=== PATIENT | female | born 1945 | race American Indian/Alaskan Native ===

== ENCOUNTER 2019-06-05 01:06 | Inpatient (IN) | payer MEDICARE ==
--- NOTE | 2019-06-05 03:14 | XRay Report ---
RIGHT HIP 2 VIEWS INDICATION / CLINICAL INFORMATION: Fall 3 weeks ago with increasing right hip pain. COMPARISON: None available. FINDINGS: BONES / JOINT(S): There is an acute fracture of the subcapital femoral neck on the right. There is mi ld superior and lateral displacement of the distal fracture fragment with overriding present. No disl ocation is seen. There is lower lumbar spondylosis. SOFT TISSUES: No significant abnormality. ADDITIONAL FINDINGS: None. IMPRESSION: Acute, mildly displaced fracture of the subcapital right femoral neck. Signer Name: Trace Quintanilla MD Signed: 06/05/2019 3:10 AM Workstation Name: [id number]
[2019-06-05 04:37] LABS: Basophils % (Auto) 0.4 % (0.0-1.8); Eosinophils # (Auto) 0.1 K/mm3 (0.0-0.4); Eosinophils % (Auto) 1.1 % (0.0-4.3); Hematocrit 36.6 % (30.3-42.9); Hemoglobin 12.2 gm/dl (10.1-14.3); Lymphocytes # (Auto) 2.2 K/mm3 (1.2-5.4); Lymphocytes % (Auto) 22.3 % (13.4-35.0); Mean Corpuscular HGB Conc 33 % (30-34); Mean Corpuscular Volume 82 fl (79-97); Monocytes # (Auto) 0.5 K/mm3 (0.0-0.8); Monocytes % (Auto) 5.1 % (0.0-7.3); Platelet Count 313 K/mm3 (140-440); Red Blood Count 4.45 M/mm3 (3.65-5.03); Red Cell Distribution Width 13.4 % (13.2-15.2)
[2019-06-05 04:44] LABS: INR 1.04 (0.87-1.13)
[2019-06-05] MEDS ORDERED: ONDANSETRON 4 MG/2 ML INJ IV ONE (04:44)
[2019-06-05] MEDS ORDERED: MORPHINE 4 MG/1 ML INJ IV ONE (04:44)
[2019-06-05 04:45] LABS: Partial Thromboplastin Time 25.2 Sec. (24.2-36.6)
[2019-06-05 04:54] LABS: BUN/Creatinine Ratio 24; Blood Urea Nitrogen 19 mg/dL (7-17); Calcium 9.9 mg/dL (8.4-10.2); Hemolysis Index 0
[2019-06-05] MEDS ORDERED: MORPHINE 2 MG/1 ML INJ IV ONE (08:06)
[2019-06-05] MEDS ORDERED: SODIUM CHLORIDE 0.9% 1000 ML 1,000 ML IV ONE (08:06)
--- NOTE | 2019-06-05 08:54 | Emergency Department Report ---
ED Fall HPI - General Chief Complaint: Fall Stated Complaint: FALL/SEVERE GROIN PAIN Time Seen by Provider: 06/05/19 06:29 Source: patient Mode of arrival: Ambulatory - History of Present Illness Initial Comments: Reports ground level fall on [place] [place]. Reports tripped and fell on her right hip. Reports head trauma but denies LOC. Reports has ambulated with pain at the right hip since the fall and that the pain became worst today. Denies drugs/alcohol. Complaint: fall - Related Data Allergies Allergy/AdvReac Type Severity Reaction Status Date / Time lisinopril Allergy Swelling Verified 06/05/19 02:19 Penicillins Allergy Hives Verified 06/05/19 02:19 ED Review of Systems ROS: Stated complaint: FALL/SEVERE GROIN PAIN Other details as noted in HPI Other: GENERAL: No weight change, fatigue, fever, chills, or night sweats SKIN: No changes in skin or hair, no itching, no rashes, no jaundice HEAD: No trauma EYES: No blurriness, tearing, itching, acute visual loss, conjunctival discoloration, or scleral icterus EARS: No hearing loss, tinnitus, vertigo, or earache NOSE: No rhinorrhea, stuffiness, sneezing, itching, or epistaxis MOUTH: No bleeding gums, hoarseness, sore throat, or swelling CARDIAC: No new murmur, chest pain, palpitations, dyspnea on exertion, orthopnea, PND, or edema RESPIRATORY: No shortness of breath, wheeze, cough, sputum production, hemoptysis GI: No abdominal pain, nausea, vomiting, dysphagia, diarrhea, constipation, hematemesis, melena, hematochezia URINARY: No frequency, urgency, polyuria, dysuria, hematuria, or incontinence MUSCULOSKELETAL: Right hip pain NEUROLOGIC: No headache, syncope, loss of sensation, numbness, tingling, tremors, weakness, paralysis, seizures HEMATOLOGIC: No anemia, easy bruising, bleeding, petechiae, or purpura ENDOCRINE: No hot or cold intolerance, sweating, polyuria, polydipsia or, polyphagia no thyroid problems PSYCHIATRIC: No change in mood, no anxiety, no depression ED Past Medical Hx - Past Medical History Previous Medical History?: Yes Hx Hypertension: Yes Additional medical history: Osteoporosis, Carpal Tunnel Right hand, - Surgical History Past Surgical History?: Yes Additional Surgical History: Tubal Ligation - Social History Smoking Status: Never Smoker Substance Use Type: None ED Physical Exam - General Limitations: No Limitations - Other Other exam information: GENERAL: Patient in no acute distress HEAD: Normocephalic, atraumatic EYES: PERRLA, EOM intact, no scleral icterus, no conjunctival hemorrhage, visual [place] and acuity wnl NOSE: No tenderness, discharge, sinus tenderness MOUTH: No erythema, bleeding, exudate HEART: Regular rate and rhythm, no murmur, S1-S2 are auscultated, no edema, pulses are symmetric LUNGS: No respiratory distress. Bilateral breath sounds, No tachypnea, No retractions, No wheezing, rales, rhonchi ABDOMEN: Normal bowel sounds, abdomen soft, no tenderness, no rebound, no guarding, no distention, no masses, no CVA tenderness MUSCULOSKELETAL: Decreased ROM of right hip due to pain. Tenderness at the right hip. No obvious deformity. NEUROLOGIC: GCS 15, Alert and Oriented x3, Cranial nerves intact, normal sensation, normal strength, no cerebellar deficit, NIHSS 0 SKIN: Skin is warm and dry, no wounds, no rashes ED Course Vital Signs 06/05/19 06/05/19 06/05/19 01:11 04:14 04:31 Temperature 97.7 F 97.9 F Pulse Rate 90 96 H 81 Respiratory 16 14 17 Rate Blood Pressure 152/67 146/64 Blood Pressure 146/64 [Left] O2 Sat by Pulse 94 96 96 Oximetry 06/05/19 06/05/19 06/05/19 05:00 05:31 06:00 Temperature Pulse Rate 74 68 75 Respiratory 13 14 13 Rate Blood Pressure 138/71 138/71 146/75 Blood Pressure [Left] O2 Sat by Pulse 98 97 92 Oximetry 06/05/19 06/05/19 06/05/19 06:31 07:22 07:31 Temperature 98.5 F Pulse Rate 99 H 106 H 82 Respiratory 21 22 13 Rate Blood Pressure 146/75 140/70 Blood Pressure 140/70 [Left] O2 Sat by Pulse 98 99 94 Oximetry 06/05/19 08:00 Temperature Pulse Rate 79 Respiratory 14 Rate Blood Pressure 136/71 Blood Pressure [Left] O2 Sat by Pulse 91 Oximetry ED Medical Decision Making - Lab Data Result diagrams: 06/05/19 04:14 06/05/19 04:14 Laboratory Results - last 24 hr 06/05/19 06/05/19 06/05/19 04:14 04:14 04:14 WBC 9.9 RBC 4.45 Hgb 12.2 Hct 36.6 MCV 82 MCH 27 L MCHC 33 RDW 13.4 Plt Count 313 Lymph % (Auto) 22.3 [place] % (Auto) 5.1 Eos % (Auto) 1.1 Baso % (Auto) 0.4 Lymph # 2.2 [place] # 0.5 Eos # 0.1 Baso # 0.0 Seg Neutrophils % 71.1 H Seg Neutrophils # 7.0 PT 13.7 INR 1.04 APTT 25.2 Sodium 142 Potassium 3.9 Chloride 101.0 Carbon Dioxide 28 Anion Gap 17 BUN 19 H Creatinine 0.8 Estimated GFR > 60 BUN/Creatinine Ratio 24 Glucose 132 H Calcium 9.9 - Radiology Data Radiology results: report reviewed - Medical Decision Making At Dr. Neville call back updated with results. Request admit to hospitalist. Will see patient on consult . Possibly OR tomorrow. Patient comfortable. Updated with results. Plan admit for further evaluation. Hospitalist updated and accepts admission. Critical care attestation.: If time is entered above; I have spent that time in minutes in the direct care of this critically ill patient, excluding procedure time. ED Disposition Clinical Impression: Fall Qualifiers: Encounter type: initial encounter Qualified Code(s): W19.XXXA - Unspecified fall, initial encounter Hip fracture, right Qualifiers: Encounter type: initial encounter Fracture type: closed Qualified Code(s): S72.001A - Fracture of unspecified part of neck of right femur, initial encounter for closed fracture Disposition: OP ADMIT IP TO THIS HOSP Is pt being admited?: Yes Condition: Stable Referrals: PRIMARY CARE, [Primary Care Provider] - 3-5 Days
[2019-06-05] MEDS ORDERED: oxyCODONE /ACETAMINOPHEN 5-325MG TAB PO PRN (10:32)
[2019-06-05] MEDS ORDERED: ACETAMINOPHEN 325 MG TAB PO PRN (10:32)
--- NOTE | 2019-06-05 10:34 | History and Physical Report ---
History of Present Illness Chief complaint: I fell and hurt my hip History of present illness: 73-year-old female with hypertension, osteoporosis presents to ED for evaluation. Patient states that she fell while walking in her home about 2 weeks ago and landed on her right side. Patient states that she had experienced pain in her right hip since her fall. Patient states that pain is 4/10, constant, worse with ambulation, worsened with weightbearing, and results in difficulty with ambulation. Patient transported to [facility] for further care and evaluation. Patient seen and evaluated in the emergency department. Lab and imaging studies reviewed. Patient found to have right hip fracture. Orthopedic surgery service consulted in ED. Patient admitted to surgical floor for surgical intervention. Patient denies fever, chills, chest pain, palpitations, shortness of breath, unilateral leg swelling, calf Pain, hemoptysis, productive cough, recent ill contacts. Prior admission on 07/02/2012 reviewed. No medicat ion listed at time of admission for reconciliation. Past History Past Medical History: other (See HPI) Past Surgical History: Other (Tubal ligation) Social history: , lives with family Family history: hypertension Medications and Allergies Allergies Allergy/AdvReac Type Severity Reaction Status Date / Time lisinopril Allergy Swelling Verified 06/05/19 02:19 Penicillins Allergy Hives Verified 06/05/19 02:19 Active Meds: Active Medications Sodium Chloride (Nacl 0.9% 1000 Ml) 1,000 mls @ 75 mls/hr IV DIRECT ONE Stop: 06/05/19 21:25 Last Admin: 06/05/19 08:22 Dose: 75 mls/hr Documented by: Review of Systems Constitutional: no weight loss, no weight gain, no fever, no chills Ears, nose, mouth and throat: no ear pain, no ear discharge, no decreased hearing, no nose pain Breasts: no change in shape Cardiovascular: no palpitations, no rapid/irregular heart beat, no edema, no lightheadedness Respiratory: no cough, no excessive sputum, no hemoptysis, no shortness of breath Gastrointestinal: no nausea, no diarrhea, no change in bowel habits, no hematemesis Genitourinary Female: no dysmenorrhea, no flank pain, no urgency, no post void dribbling, no urge incontinence Rectal: no pain, no incontinence, no bleeding Musculoskeletal: other (Right hip pain), no neck stiffness, no shooting arm pain, no arm numbness/tingling, no low back pain Integumentary: no rash, no pruritis, no wounds, no jaundice Neurological: no head injury, no transient paralysis, no parathesias, no tingling, no seizures Psychiatric: no anxiety, no change in sleep habits, no insomnia, no hypersomnia, no change in appetite, no change in libido Endocrine: no cold intolerance, no heat intolerance, no excessive thirst, no polydipsia, no excessive sweating, no flushing Hematologic/Lymphatic: no easy bruising, no lymphadenopathy, no lymphedema Allergic/Immunologic: no urticaria, no allergic rhinitis, no wheezing, no a ngioedema Exam - Constitutional Vitals: Temp Pulse Resp BP Pulse Ox 98.5 F 79 14 136/71 91 06/05/19 07:22 06/05/19 08:00 06/05/19 08:00 06/05/19 08:00 06/05/19 08:00 General appearance: Present: mild distress - EENT Eyes: Present: PERRL ENT: hearing intact, clear oral mucosa - Neck Neck: Present: supple, normal ROM - Respiratory Respiratory effort: normal Respiratory: bilateral: CTA - Cardiovascular Heart Sounds: Present: S1 & S2. Absent: rub, click - Extremities Extremities: pulses symmetrical, No edema Extremity abnormal: tenderness, other (Right hip pain and tenderness.) Peripheral Pulses: within normal limits - Abdominal General gastrointestinal: Present: soft, non-tender, non-distended, normal bowel sounds Female genitourinary: Present: normal - Integumentary Integumentary: Present: clear, warm, dry - Musculoskeletal Musculoskeletal: gait normal, strength equal bilaterally - Psychiatric Psychiatric: appropriate mood/affect, intact judgment & insight - Neurologic Neurologic: CNII-XII intact, moves all extremities Results - Labs CBC & Chem 7: 06/05/19 04:14 06/06/19 15:51 Labs: Abnormal lab results 06/05/19 06/05/19 Range/Units 04:14 04:14 MCH 27 L (28-32) pg Seg Neutrophils % 71.1 H (40.0-70.0) % BUN 19 H (7-17) mg/dL Glucose 132 H (65-100) mg/dL Assessment and Plan - Patient Problems (1) Hip fracture, right Current Visit: Yes Status: Acute Qualifiers: Encounter type: initial encounter Fracture type: closed Qualified Code(s) : S72.001A - Fracture of unspecified part of neck of right femur, initial encounter for closed fracture Plan to address problem: Orthopedic surgery consulted in ED, pain control, IV fluid resuscitation therapy, n.p.o. after midnight, surgical intervention as per surgical team. (2) Fall Current Visit: Yes Status: Acute Qualifiers: Encounter type: initial encounter Qualified Code(s): W19.XXXA - Unspecified fall, initial encounter Plan to address problem: Supportive care. (3) Advance care planning Current Visit: Yes Status: Acute Plan to address problem: Patient is full code, disease education conducted, patient and family acknowledge understanding and agreement with care plan, +30 minutes. (4) Hypertension Current Visit: Yes Status: Acute Qualifiers: Hypertension type: essential hypertension Qualified Code(s): I10 - Essential (primary) hypertension Plan to address problem: Monitor blood pressure every shift, continue medical management. (5) DVT prophylaxis Current Visit: Yes Status: Acute Plan to address problem: SCD to bilateral lower extremities while in bed, prophylactic Lovenox
--- NOTE | 2019-06-05 11:20 | Cat Scan Report ---
CT BRAIN: 06/05/2019 INDICATION / CLINICAL INFORMATION: Trauma. COMPARISON: None available. FINDINGS: BRAIN/INTRACRANIAL STRUCTURES: Unenhanced CT images of the brain were obtained. There is no evidence of acute abnormality. Ventricles and sulci are slightly prominent in size, consistent with normal age-related atrophic [place] ge. There is no evidence of hemorrhage or mass. There are no abnormal extra-axial fluid collections. EXTRACRANIAL STRUCTURES: Unremarkable. IMPRESSION: No significant abnormality. All CT scans at this location are performed using dose reduction to ALARA by means of automated expos ure control. Signer Name: Bud Tsai MD Signed: 06/05/2019 11:16 AM Workstation Name: [id number]
[2019-06-05] MEDS: MORPHINE 2 MG/1 ML INJ IV PRN (14:19)
--- NOTE | 2019-06-05 16:00 | Consultation ---
History of Present Illness - HPI Consult date: 06/05/19 Consult reason: fracture History of present illness: 73 y/o female with c/o right hip pain, states she fell on [place] and began having pain and limping, pain increased over time to the point where she came to the ED at [facility] ... Medications and Allergies Allergies Allergy/AdvReac Type Severity Reaction Status Date / Time lisinopril Allergy Swelling Verified 06/05/19 02:19 Penicillins Allergy Hives Verified 06/05/19 02:19 Active Meds: Active Medications Acetaminophen (Tylenol) 650 mg PO Q4H PRN PRN Reason: Pain MILD(1-3)/Fever >100.5/ELIZONDO Sodium Chloride (Nacl 0.9% 1000 Ml) 1,000 mls @ 75 mls/hr IV DIRECT ONE Stop: 06/05/19 21:25 Last Admin: 06/05/19 08:22 Dose: 75 mls/hr Documented by: Morphine Sulfate (Morphine) 1 mg IV Q4H PRN PRN Reason: Pain, Moderate (4-6) Last Admin: 06/05/19 14:19 Dose: 1 mg Documented by: Ondansetron HCl (Zofran) 4 mg IV Q8H PRN PRN Reason: Nausea And Vomiting Oxycodone/Acetaminophen (Percocet 5/325) 1 tab PO Q6H PRN PRN Reason: Pain, Moderate (4-6) Last Admin: 06/05/19 14:51 Dose: 1 tab Documented by: Sodium Chloride (Sodium Chloride Flush Syringe 10 Ml) 10 ml IV BID FLORINDA Sodium Chloride (Sodium Chloride Flush Syringe 10 Ml) 10 ml IV PRN PRN PRN Reason: LINE FLUSH Physical Examination - Physical exam Narrative exam: Right LE - tender at groin, decreased passive ROM, slight shortening noted, distal n/v intact Eyes: PERRL ENT: Positive: clear oral mucosa Respiratory effort: normal Respiratory: bilateral: CTA Rhythm: regular Heart Sounds: Positive: S1 & S2 General gastrointestinal: Positive: soft, non-tender, non-distended, normal bowel sounds Integumentary: clear, warm, dry Neurologic: Positive: CNII-XII intact, moves all extremities, gait normal. Negative: focal deficits - Cervical Spine Neck pain: none Tenderness with palpation: none Full ROM: yes ROM: flexion: normal ROM: extension: normal ROM: rotation right: normal ROM: rotation left: normal ROM: lateral flexion right: normal ROM: lateral flexion left: normal - Lumbar Spine Back pain: none Tenderness with palpation: none Appearance: normal Full ROM: yes ROM: flexion: normal ROM: extension: normal ROM: rotation right: normal ROM: rotation left: normal ROM: lateral flexion right: normal ROM: lateral flexion left: normal Assessment and Plan Displaced right femoral neck fracture recommend bipolar hemiarthroplasty
[2019-06-06] MEDS: MORPHINE 2 MG/1 ML INJ IV PRN ×2 (00:17→20:29)
[2019-06-06] MEDS ORDERED: MORPHINE 10 MG/1 ML INJ ONE (07:38)
[2019-06-06] MEDS ORDERED: KETOROLAC 30 MG/1 ML INJ ONE ×2 (07:38→10:41)
[2019-06-06] MEDS ORDERED: BUPIVACAINE/PF (0.5%) 5 MG/1 ML 10 ML VIAL INFILTRATI ONE ×2 (07:38→09:49)
[2019-06-06] MEDS ORDERED: SODIUM CHLORIDE 0.9% 100 ML ONE ×2 (07:39→07:41)
[2019-06-06] MEDS ORDERED: TRANEXAMIC ACID 1,000 MG/10 ML ONE (07:40)
[2019-06-06] MEDS ORDERED: SODIUM CHLORIDE 0.9% 50 ML ONE (07:40)
[2019-06-06] MEDS ORDERED: PROPOFOL 200 MG/20 ML VIAL IV ONE (08:42)
[2019-06-06] MEDS ORDERED: LIDOCAINE MPF (2%) 20 MG/1 ML VIAL 5 ML ONE (08:42)
[2019-06-06] MEDS ORDERED: HYDROmorphone 1 MG/1 ML INJ ONE (08:42)
--- NOTE | 2019-06-06 08:49 | Anesthesia Consultation ---
Anesthesia Consult and Med Hx Date of service: 06/06/19 - Airway Anesthetic Teeth Evaluation: Good ROM Head & Neck: Adequate Mental/Hyoid Distance: Adequate Mallampati Class: Class II Intubation Access Assessment: Probably Good - Pre-Operative Health Status ASA Pre-Surgery Classification: ASA2 Proposed Anesthetic Plan: General, Spinal - Cardiovascular System Hx Hypertension: Yes
--- NOTE | 2019-06-06 08:50 | Anesthesia Day of Surgery ---
Anesthesia Day of Surgery - Day of Surgery Patient Examined: Yes Patient H&P Reviewed: Yes Patient is NPO: Yes Beta Blockers: Yes
[2019-06-06] MEDS ORDERED: VANCOMYCIN 1000 MG INJ ONE (09:04)
[2019-06-06] MEDS ORDERED: SODIUM CHLORIDE 0.9% 250ML 250 ML ONE (09:05)
[2019-06-06] MEDS ORDERED: SODIUM CHLORIDE 0.9% 50 ML IVPB IV ONE (09:45)
[2019-06-06] MEDS ORDERED: SODIUM CHLORIDE 0.9% 100 ML IVPB IV ONE (09:46)
[2019-06-06] MEDS ORDERED: MORPHINE 10 MG/1 ML INJ IM ONE (09:47)
[2019-06-06] MEDS ORDERED: KETOROLAC 30 MG/1 ML INJ IV ONE (09:48)
[2019-06-06] MEDS ORDERED: TRANEXAMIC ACID 1,000 MG/10 ML IV ONE (09:49)
[2019-06-06] MEDS ORDERED: ONDANSETRON 4 MG/2 ML INJ IV PRN (10:25)
[2019-06-06] MEDS ORDERED: HYDROmorphone 1 MG/1 ML INJ IV PRN (10:25)
--- NOTE | 2019-06-06 10:32 | Procedure Note ---
Date of procedure: 06/06/19 Pre-op diagnosis: displaced right femoral neck fracture Post-op diagnosis: same Procedure: Right Bipolar Hemiarthroplasty Procedure The patient was brought to the OR and placed on the OR table in supine position following induction and intubation by anesthesia the patient was placed in the left lateral decubitus position The right hip was then prepped and draped in the usual sterile manner a timeout procedure was done to identify the patient and the correct operative site. Next a lateral incision was made along the proximal femur was taken down sharply through skin and subcutaneous the fascia meera was seen and incised. A Charnley retractor was placed deep within the wound next the anterior capsule was entered the femoral neck fracture was seen the remaining portion of the femoral neck was then osteotomized in line with a stem template The femoral head was retrieved using a corkscrew device measuring the size of the femoral head and a 48 mm diameter was chosen, followed by reaming and broaching to a #9 stem utilizing a neutral neck and a 28 mm head and the construct was then reduced the hip was taken through a range of motion and was found to be stable. All components were removed. Final components were assembled and inserted the hip was then reduced and taken through a range of motion and again it was found to be stable next the wound was copiously irrigated a cocktail mixture of Toradol and morphine. Again and saline was injected into the surrounding soft tissue for postop pain management following this the wound was closed in a standard routine fashion. Dressings were applied the patient tolerated the procedure there were no complications and he was sent to post anesthesia recovery Anesthesia: SIMIN Surgeon: FAVIAN DAI Batch Or Continuous Still Operator: PATRICIO DRIVER Estimated blood loss: other (300 mL) Pathology: list (right femoral neck and head) Condition: stable Disposition: PACU
[2019-06-06] MEDS ORDERED: ONDANSETRON 4 MG/2 ML INJ ONE (10:41)
[2019-06-06] MEDS ORDERED: SODIUM CHLORIDE 0.9% 1000 ML 1,000 ML ONE ×2 (10:52→11:11)
[2019-06-06] MEDS: oxyCODONE /ACETAMINOPHEN 5-325MG TAB PO PRN (11:35)
[2019-06-06] MEDS ORDERED: oxyCODONE /ACETAMINOPHEN 5-325MG TAB ONE (11:36)
[2019-06-06 16:48] LABS: BUN/Creatinine Ratio 18; Blood Urea Nitrogen 11 mg/dL (7-17); Calcium 8.5 mg/dL (8.4-10.2); Hemolysis Index 6
[2019-06-06] MEDS: ONDANSETRON 4 MG/2 ML INJ IV PRN (19:11)
--- NOTE | 2019-06-06 20:29 | Progress Note ---
Assessment and Plan - Patient Problems (1) Hip fracture, right Current Visit: Yes Status: Acute Qualifiers: Encounter type: initial encounter Fracture type: closed Qualified Code(s): S72.001A - Fracture of unspecified part of neck of right femur, initial encounter for closed fracture Plan to address problem: Orthopedic surgery consulted in ED, pain control, IV fluid resuscitation therapy, n.p.o. after midnight, surgical intervention as per surgical team. (2) Fall Current Visit: Yes Status: Acute Qualifiers: Encounter type: initial encounter Qualified Code(s): W19.XXXA - Unspecified fall, initial encounter Plan to address problem: Supportive care. (3) Advance care planning Current Visit: Yes Status: Acute Plan to address problem: Patient is full code, disease education conducted, patient and family acknow ledge understanding and agreement with care plan, +30 minutes. (4) Hypertension Current Visit: Yes Status: Acute Qualifiers: Hypertension type: essential hypertension Qualified Code(s): I10 - Essential (primary) hypertension Plan to address problem: Monitor blood pressure every shift, continue medical management. (5) DVT prophylaxis Current Visit: Yes Status: Acute History Interval history: 73-year-old female hospital day 2 with right hip fracture status post fall. Patient pending surgical intervention today. No reported nursing events overnight. Patient reports continued pain in right hip. Pain is controlled with pain medication. Patient denies fever, chills, chest pain, palpitations, shortness of breath. Hospitalist Physical - Constitutional Vitals: Temp Pulse Resp BP Pulse Ox 97.9 F 71 18 122/61 99 06/06/19 16:00 06/06/19 16:00 06/06/19 16:00 06/06/19 16:00 06/06/19 16:00 General appearance: Present: mild distress - EENT Eyes: Present: PERRL ENT: hearing intact - Neck Neck: Present: supple - Respiratory Respiratory effort: normal Respiratory: bilateral: CTA - Cardiovascular Rhythm: regular Heart Sounds: Present: S1 & S2 - Extremities Extremities: no ischemia Extremity abnormal: edema, tenderness, other (Right hip tenderness.) Peripheral Pulses: within normal limits - Abdominal General gastrointestinal: soft, non-tender, non-distended - Integumentary Integumentary: Present: clear, warm, erythema - Psychiatric Psychiatric: appropriate mood/affect, cooperative - Neurologic Neurologic: CNII-XII intact Results - Labs CBC & Chem 7: 06/05/19 04:14 06/06/19 15:51 Labs: Laboratory Last Values WBC 9.9 K/mm3 (4.5-11.0) 06/05/19 04:14 RBC 4.45 M/mm3 (3.65-5.03) 06/05/19 04:14 Hgb 12.2 gm/dl (10.1-14.3) 06/05/19 04:14 Hct 36.6 % (30.3-42.9) 06/05/19 04:14 MCV 82 fl (79-97) 06/05/19 04:14 MCH 27 pg (28-32) L 06/05/19 04:14 MCHC 33 % (30-34) 06/05/19 04:14 RDW 13.4 % (13.2-15.2) 06/05/19 04:14 Plt Count 313 K/mm3 (140-440) 06/05/19 04:14 Lymph % (Auto) 22.3 % (13.4-35.0) 06/05/19 04:14 [place] % (Auto) 5.1 % (0.0-7.3) 06/05/19 04:14 Eos % (Auto) 1.1 % (0.0-4.3) 06/05/19 04:14 Baso % (Auto) 0.4 % (0.0-1.8) 06/05/19 04:14 Lymph # 2.2 K/mm3 (1.2-5.4) 06/05/19 04:14 [place] # 0.5 K/mm3 (0.0-0.8) 06/05/19 04:14 Eos # 0.1 K/mm3 (0.0-0.4) 06/05/19 04:14 Baso # 0.0 K/mm3 (0.0-0.1) 06/05/19 04:14 Seg Neutrophils % 71.1 % (40.0-70.0) H 06/05/19 04:14 Seg Neutrophils # 7.0 K/mm3 (1.8-7.7) 06/05/19 04:14 PT 13.7 Sec. (12.2-14.9) 06/05/19 04:14 INR 1.04 (0.87-1.13) 06/05/19 04:14 APTT 25.2 Sec. (24.2-36.6) 06/05/19 04:14 Sodium 138 mmol/L (137-145) 06/06/19 15:51 Potassium 3.5 mmol/L (3.6-5.0) L 06/06/19 15:51 Chloride 99.9 mmol/L (98-107) 06/06/19 15:51 Carbon Dioxide 23 mmol/L (22-30) 06/06/19 15:51 Anion Gap 19 mmol/L 06/06/19 15:51 BUN 11 mg/dL (7-17) 06/06/19 15:51 Creatinine 0.6 mg/dL (0.7-1.2) L 06/06/19 15:51 Estimated GFR > 60 ml/min 06/06/19 15:51 BUN/Creatinine Ratio 18 % 06/06/19 15:51 Glucose 100 mg/dL (65-100) 06/06/19 15:51 Calcium 8.5 mg/dL (8.4-10.2) 06/06/19 15:51 Active Medications - Current Medications Current Medications: Generic Name Dose Route Start Last Admin Trade Name Freq PRN Reason Stop Dose Admin Acetaminophen 650 mg 06/05/19 10:32 Tylenol PO Q4H PRN Pain MILD(1-3)/Fever >100.5/ELIZONDO Enoxaparin Sodium 40 mg 06/07/19 10:00 Enoxaparin SUB-Q QDAY FLORINDA Hydromorphone HCl 0.25 mg 06/06/19 10:25 Dilaudid IV Q10MIN PRN Pain, Moderate (4-6) Morphine Sulfate 1 mg 06/05/19 10:32 06/06/19 00:17 Morphine IV 1 mg Q4H PRN Administration Pain, Moderate (4-6) Morphine Sulfate 2 mg 06/06/19 10:26 Morphine IV Q4H PRN Pain, Moderate (4-6) Ondansetron HCl 4 mg 06/05/19 10:32 06/06/19 19:11 Zofran IV 4 mg Q8H PRN Administration Nausea And Vomiting Ondansetron HCl 4 mg 06/06/19 10:25 Zofran IV ONCE PRN Nausea And Vomiting Oxycodone/Acetaminophen 1 tab 06/06/19 10:26 06/06/19 11:35 Percocet 5/325 PO 1 tab Q6H PRN Administration Pain, Moderate (4-6) Sodium Chloride 10 ml 06/05/19 22:00 06/05/19 22:00 Sodium Chloride Flush Syringe 10 Ml IV 10 ml BID FLORINDA Administration Sodium Chloride 10 ml 06/05/19 10:32 Sodium Chloride Flush Syringe 10 Ml IV PRN PRN LINE FLUSH Sodium Chloride 10 ml 06/06/19 11:00 Sodium Chloride Flush Syringe 10 Ml IV 06/06/19 23:59 PRN NR
[2019-06-07] MEDS: MORPHINE 2 MG/1 ML INJ IV PRN ×3 (01:58→22:04)
[2019-06-07] MEDS: ONDANSETRON 4 MG/2 ML INJ IV PRN (02:01)
[2019-06-07 07:50] LABS: Hematocrit 34.9 % (30.3-42.9); Hemoglobin 11.2 gm/dl (10.1-14.3)
--- NOTE | 2019-06-07 10:05 | XRay Report ---
RIGHT HIP ONE VIEW INDICATION: post op evaluation. COMPARISON: 06/05/2019 IMPRESSION: Right hip arthroplasty changes are evident since the previous exam. The hardware appears well applied. There is no evidence for malalignment or acute fracture. Soft tissue swelling and gas is consistent with recent surgery. Signer Name: Abdulaziz Gandhi Jr, MD Signed: 06/07/2019 10:00 AM Workstation Name: [id number]
[2019-06-07] MEDS: oxyCODONE /ACETAMINOPHEN 5-325MG TAB PO PRN ×2 (10:14→16:09)
[2019-06-07] MEDS: ENOXAPARIN 40 MG/0.4 ML INJ SUB-Q SCH (10:14)
--- NOTE | 2019-06-07 13:38 | Progress Note ---
Assessment and Plan - Patient Problems (1) Hip fracture, right Current Visit: Yes Status: Acute Qualifiers: Encounter type: initial encounter Fracture type: closed Qualified Code(s): S72.001A - Fracture of unspecified part of neck of right femur, initial encounter for closed fracture Plan to address problem: Orthopedic surgery consulted in ED, pain control, IV fluid resuscitation therapy, S/P surgical intervention, physical therapy consulted, pending rehab placement.. (2) Fall Current Visit: Yes Status: Acute Qualifiers: Encounter type: initial encounter Qualified Code(s): W19.XXXA - Unspecified fall, initial encounter Plan to address problem: Supportive care. (3) Advance care planning Current Visit: Yes Status: Acute Plan to address problem: Patient is full code, disease education conducted, patient and family acknowledge understanding and agreement with care plan, +30 minutes. (4) Hypertension Current Visit: Yes Status: Acute Qualifiers: Hypertension type: essential hypertension Qualified Code(s): I10 - Essential (primary) hypertension Plan to address problem: Monitor blood pressure every shift, continue medical management. (5) DVT prophylaxis Current Visit: Yes Status: Acute Plan to address problem: SCD to bilateral lower extremities while in bed, prophylactic Lovenox History Interval history: 73-year-old female hospital day 3 with right hip fracture status post fall. No reported nursing events overnight. Patient reports mild right hip discomfort. Pain is controlled with pain medication. Patient denies fever, chills, chest pain, palpitations, shortness of breath. Patient is pending rehab placement. Patient currently being evaluated by physical therapy. Hospitalist Physical - Constitutional Vitals: Temp Pulse Resp BP Pulse Ox 98.6 F 86 20 130/60 100 06/07/19 07:19 06/07/19 07:19 06/07/19 07:19 06/07/19 07:19 06/07/19 07:19 General appearance: Present: mild distress - EENT Eyes: Present: PERRL, EOM intact ENT: hearing intact - Neck Neck: Present: supple - Respiratory Respiratory: bilateral: CTA - Cardiovascular Rhythm: regular Heart Sounds: Present: S1 & S2 - Extremities Extremities: no ischemia Peripheral Pulses: within normal limits - Abdominal General gastrointestinal: soft, non-tender, non-distended - Integumentary Integumentary: Present: clear, warm, dry - Psychiatric Psychiatric: appropriate mood/affect, cooperative - Neurologic Neurologic: CNII-XII intact Results - Labs CBC & Chem 7: 06/07/19 07:29 06/06/19 15:51 Labs: Laboratory Last Values WBC 9.9 K/mm3 (4.5-11.0) 06/05/19 04:14 RBC 4.45 M/mm3 (3.65-5.03) 06/05/19 04:14 Hgb 11.2 gm/dl (10.1-14.3) 06/07/19 07:29 Hct 34.9 % (30.3-42.9) 06/07/19 07:29 MCV 82 fl (79-97) 06/05/19 04:14 MCH 27 pg (28-32) L 06/05/19 04:14 MCHC 33 % (30-34) 06/05/19 04:14 RDW 13.4 % (13.2-15.2) 06/05/19 04:14 Plt Count 313 K/mm3 (140-440) 06/05/19 04:14 Lymph % (Auto) 22.3 % (13.4-35.0) 06/05/19 04:14 [place] % (Auto) 5.1 % (0.0-7.3) 06/05/19 04:14 Eos % (Auto) 1.1 % (0.0-4.3) 06/05/19 04:14 Baso % (Auto) 0.4 % (0.0-1.8) 06/05/19 04:14 Lymph # 2.2 K/mm3 (1.2-5.4) 06/05/19 04:14 [place] # 0.5 K/mm3 (0.0-0.8) 06/05/19 04:14 Eos # 0.1 K/mm3 (0.0-0.4) 06/05/19 04:14 Baso # 0.0 K/mm3 (0.0-0.1) 06/05/19 04:14 Seg Neutrophils % 71.1 % (40.0-70.0) H 06/05/19 04:14 Seg Neutrophils # 7.0 K/mm3 (1.8-7.7) 06/05/19 04:14 PT 13.7 Sec. (12.2-14.9) 06/05/19 04:14 INR 1.04 (0.87-1.13) 06/05/19 04:14 APTT 25.2 Sec. (24.2-36.6) 06/05/19 04:14 Sodium 138 mmol/L (137-145) 06/06/19 15:51 Potassium 3.5 mmol/L (3.6-5.0) L 06/06/19 15:51 Chloride 99.9 mmol/L (98-107) 06/06/19 15:51 Carbon Dioxide 23 mmol/L (22-30) 06/06/19 15:51 Anion Gap 19 mmol/L 06/06/19 15:51 BUN 11 mg/dL (7-17) 06/06/19 15:51 Creatinine 0.6 mg/dL (0.7-1.2) L 06/06/19 15:51 Estimated GFR > 60 ml/min 06/06/19 15:51 BUN/Creatinine Ratio 18 % 06/06/19 15:51 Glucose 100 mg/dL (65-100) 06/06/19 15:51 Calcium 8.5 mg/dL (8.4-10.2) 06/06/19 15:51 Active Medications - Current Medications Current Medications: Generic Name Dose Route Start Last Admin Trade Name Freq PRN Reason Stop Dose Admin Acetaminophen 650 mg 06/05/19 10:32 Tylenol PO Q4H PRN Pain MILD(1-3)/Fever >100.5/ELIZONDO Enoxaparin Sodium 40 mg 06/07/19 10:00 06/07/19 10:14 Enoxaparin SUB-Q 40 mg QDAY FLORINDA Administration Hydromorphone HCl 0.25 mg 06/06/19 10:25 Dilaudid IV Q10MIN PRN Pain, Moderate (4-6) Morphine Sulfate 1 mg 06/05/19 10:32 06/06/19 20:29 Morphine IV 1 mg Q4H PRN Administration Pain, Moderate (4-6) Morphine Sulfate 2 mg 06/06/19 10:26 06/07/19 05:44 Morphine IV 2 mg Q4H PRN Administration Pain, Moderate (4-6) Ondansetron HCl 4 mg 06/05/19 10:32 06/07/19 02:01 Zofran IV 4 mg Q8H PRN Administration Nausea And Vomiting Ondansetron HCl 4 mg 06/06/19 10:25 Zofran IV ONCE PRN Nausea And Vomiting Oxycodone/Acetaminophen 1 tab 06/06/19 10:26 06/07/19 10:14 Percocet 5/325 PO 1 tab Q6H PRN Administration Pain, Moderate (4-6) Sodium Chloride 10 ml 06/05/19 22:00 06/07/19 10:32 Sodium Chloride Flush Syringe 10 Ml IV 10 ml BID FLORINDA Administration Sodium Chloride 10 ml 06/05/19 10:32 Sodium Chloride Flush Syringe 10 Ml IV PRN PRN LINE FLUSH
[2019-06-07] MEDS ORDERED: POTASSIUM CHLORIDE ER 20 MEQ TAB PO ONE (20:24)
[2019-06-08] MEDS: oxyCODONE /ACETAMINOPHEN 5-325MG TAB PO PRN ×2 (05:49→12:46)
[2019-06-08 09:15] LABS: BUN/Creatinine Ratio 15; Blood Urea Nitrogen 12 mg/dL (7-17); Calcium 8.5 mg/dL (8.4-10.2); Hemolysis Index 2
--- NOTE | 2019-06-08 10:59 | Discharge Summary ---
Providers - Providers Date of Admission: 06/05/19 10:32 Attending physician: LIBIA ACEVEDO MD 06/06/19 10:26 Consult to Case Management [CONS] Routine Services Needed at Discharge: Home Health Services DME Equipment Physical Therapy Notified:: cm notified Consult to Physician [CONS] Routine Comment: Will see pt 06/06/19 Consulting Provider: NIKKIE WHYTE Physician Instructions: Admit pt to hospitalist Reason For Exam: Right hip fx 06/06/19 10:29 Physical Therapy Evaluation and Treat [CONS] Routine Comment: Reason For Exam: postoperative evaluation Weight bearing status?: Full wt bearing Assistive devices?: Yes If so list: Walker 06/07/19 10:03 Consult to Physician [CONS] Routine Comment: Consulting Provider: FAVIAN DAI Physician Instructions: Reason For Exam: R hip fracture Primary care physician: PRACTICE DIRECTOR Hospitalization Condition: Stable Hospital course: 73-year-old woman who was admitted to the hospital after she fell while walking. And then landed on her right side and had right hip pain. -She received hip replacement surgery. Which she tolerated very well. She also received physical therapy which she did well with. Her electrolytes were repleted. Preventative health counseling performed for 17 minutes Diagnosis Right hip fracture Hypokalemia Ambulatory dysfunction Disposition: [id number] HOME UNDER HOME [facility] Time spent for discharge: 35 minutes Core Measure Documentation - Palliative Care Palliative Care/ Comfort Measures: Not Applicable - Core Measures Any of the following diagnoses?: none Exam - Constitutional Vitals: Temp Pulse Resp BP Pulse Ox 98.7 F 97 H 17 113/60 90 06/08/19 08:10 06/08/19 08:10 06/08/19 05:32 06/08/19 08:10 06/08/19 08:10 General appearance: Present: no acute distress, well-nourished - EENT Eyes: Present: PERRL ENT: hearing intact, clear oral mucosa - Neck Neck: Present: supple, normal ROM - Respiratory Respiratory effort: normal Respiratory: bilateral: CTA - Cardiovascular Heart Sounds: Present: S1 & S2. Absent: rub, click - Extremities Extremities: pulses symmetrical, No edema Peripheral Pulses: within normal limits - Abdominal General gastrointestinal: Present: soft, non-tender, non-distended, normal bowel sounds Female genitourinary: Present: normal - Integumentary Integumentary: Present: clear, warm, dry - Musculoskeletal Musculoskeletal: gait normal, strength equal bilaterally - Psychiatric Psychiatric: appropriate mood/affect, intact judgment & insight - Neurologic Neurologic: CNII-XII intact, moves all extremities Plan Follow up with: PRIMARY CARE, [Referring] - 3-5 Days Prescriptions: Potassium Chloride [K-Dur] 20 meq PO QDAY #7 tablet oxyCODONE /ACETAMINOPHEN [Percocet 5/325 mg] 1 tab PO Q6H PRN #30 tablet PRN Reason: Pain, Moderate (4-6)
[2019-06-08] MEDS ORDERED: POTASSIUM CHLORIDE ER 20 MEQ TAB PO SCH (11:00)
[2019-06-08] MEDS: ENOXAPARIN 40 MG/0.4 ML INJ SUB-Q SCH (11:47)
[2019-06-08 16:03] VITALS: BP 105/64
== END 2019-06-08 17:30 | disposition home health service (06) | DRG 470 ==
LOC: BAR 01:06 → 3B-SURG 10:32
PROVIDERS: ADMIT Internal Medicine; ATTEND Internal Medicine
PROC: 0SRR0JZ Replacement of Right Hip Joint, Femoral Surface with Synthetic Substitute, Open Approach (ICD-10-PCS; principal; 2019-06-06)
DX: S72.001A Fracture of unspecified part of neck of right femur, initial encounter for closed fracture (principal); I10 Essential (primary) hypertension; M81.0 Age-related osteoporosis without current pathological fracture; Z98.51 Tubal ligation status; W01.0XXA Fall on same level from slipping, tripping and stumbling without subsequent striking against object, initial encounter; Y93.89 Activity, other specified; Y92.89 Other specified places as the place of occurrence of the external cause; Y99.8 Other external cause status
CPT/HCPCS: 36415; 70450; 80048; 85014; 85018; 85025; 85610; 85730; 88305; 88311; 96374; 96375; 96376; G0378; C1776; J1170; J1650; J1885; J2270; J2405; J2704; J3370; J7030; J7050

== ENCOUNTER 2021-02-26 10:25 | Outpatient (CLI) | payer MEDICARE ==
--- NOTE | 2021-02-26 11:38 | XRay Report ---
RIGHT HIP 3 VIEWS INDICATION: UNILATERAL PRIMARY OSTEARTHRITIS,RIGHT HIP. COMPARISON: None. IMPRESSION: Right hip prosthesis appears unchanged in position and alignment since 09/15/2019. There is increased heterotopic calcifications lateral to the prosthesis on today's exam. No acute osseous abnormality is detected. BILATERAL KNEES 2 VIEWS INDICATION: Bilateral knee pain. COMPARISON: None. IMPRESSION: Mild varus deformity is suspected bilaterally. 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 The lateral compartments are most affected. The left knee appe ars slightly more affected than the right. No acute osseous abnormality or bone lesion is identified . Signer Name: Abdulaziz Gandhi Jr, MD Signed: 02/26/2021 11:34 AM Workstation Name: [id number]
== END 2021-02-26 10:26 | disposition home or self-care (01) ==
LOC: XRAY 10:25
PROVIDERS: ATTEND Orthopaedic Surgery
DX: M16.11 Unilateral primary osteoarthritis, right hip (principal); M25.569 Pain in unspecified knee